=== PATIENT | male | born 2000 | race Caucasian/White ===

== ENCOUNTER 2025-01-19 07:09 | Emergency (ER) | payer BC, SELFPAY ==
[2025-01-19 07:14] VITALS: BP 117/78; PULSE 83; TEMP 36.9; O2SAT 100; BMI 25.8
--- NOTE | 2025-01-19 07:24 | ED_ITS ---
HPI HPI - General Adult General Chief complaint: Neck Pain/Injury Stated complaint: NECK PAIN, L ARM NUMBNESS Time Seen by Provider: 01/19/25 07:16 Source: patient Mode of arrival: walk-in Limitations: no limitations History of Present Illness HPI narrative: 24-year-old male presents for left sided neck pain. He was at the gym yesterday and he was sitting and he turned his head and had this pain. He points to the left posterior lateral aspect of his neck. He has had intermittent tingling in his left arm but no weakness. He did not fall and nothing struck him in his neck. No headache. He has no history of neck injuries. Related Data Previous Rx's ?Medication ?Instructions ?Recorded ibuprofen 800 mg tablet 800 mg PO Q8H PRN pain #20 t abs 01/19/25 methocarbamol 750 mg tablet 750 mg PO Q6H PRN pain #20 tabs 01/19/25 Allergies Allergy/AdvReac Type Severity Reaction Status Date / Time No Known Drug Allergies Allergy Verified 01/19/25 07:13 Opioid HPI Opioid Management Most Recent Opioid Data: Last Pain Scale 10 Today, 07:23 Review of Systems ROS Narrative A ten point review of systems is negative except as noted above. PFSH PFSH Social History Little interest or pleasure in doing things: not at all Feeling down, depressed, or hopeless: not at all Exam Narrative Exam Narrative: Nurses note and vital signs reviewed and patient is not hypoxic. General: The patient appears well and in no apparent distress. Patient is resting comfortably on cart. Skin: Warm, dry, no pallor noted. There is no rash noted. Head: Normocephalic, atraumatic. There is no mass or swelling or bruising or rash in his neck. Eye: Normal conjunctiva, no drainage Ears, Nose, Mouth, and Throat: oral mucosa is moist. Nares patent. Cardiovascular: Regular Rate and Rhythm Respiratory: Patient is in no distress, no accessory muscle use, lungs are clear to auscultation, no wheezing, rales or rhonchi Back: non-tender, including the C-spine GI: Soft and nontender Musculoskeletal: No swelling in his arms. Neurological: A&O, normal speech; upper and lower extremity strength intact and symmetric. Hand grasp symmetric. Radial pulses are 2+ bilaterally Psychiatric: Cooperative Constitutional Vital Signs, click to edit/add: Last Vital Signs Temp 98.4 F 01/19/25 07:14 Pulse 83 01/19/25 07:14 Resp 18 01/19/25 07:14 BP 117/78 01/19/25 07:14 Pulse Ox 100 01/19/25 07:14 O2 Del Method Room Air 01/19/25 07:14 Course Vital Signs Vital signs: Vital Signs Temperature 98.4 F 01/19/25 07:14 Pulse Rate 83 01/19/25 07:14 Respiratory Rate 18 01/19/25 07:14 Blood Pressure 117/78 01/19/25 07:14 Pulse Oximetry 100 01/19/25 07:14 Oxygen Delivery Method Room Air 01/19/25 07:14 Temperature 98.4 F 01/19/25 07:14 Pulse Rate 83 01/19/25 07:14 Respiratory Rate 18 01/19/25 07:14 Blood Pressure 117/78 01/19/25 07:14 Pulse Oximetry 100 01/19/25 07:14 Oxygen Delivery Method Room Air 01/19/25 07:14 Medical Decision Making MDM Narrative Medical decision making narrative: CT is negative. I have no clinical suspicion of vertebral artery injury. My clinical impression is that he has muscle strain and he will be treated as such. He was prescribed Robaxin and ibuprofen. Treatment diagnosis and follow-up were discussed with the patient. Differential Diagnosis Differential Diagnosis: Muscle strain, cervical vertebral injury Imaging Data CT C spine: Radiologist's impression: ITS Impressions Cervical Spine CT 01/19/25 07:37 IMPRESSION: STRAIGHTENING OF THE NORMAL CERVICAL CURVATURE. NO ACUTE BONY FINDINGS. IF SYMPTOMS PERSIST AND FURTHER EVALUATION IS WARRANTED, FOLLOW-UP MRI COULD BE CONSIDERED. Impression dictated by: Katarzyna Hyatt M.D. 01/19/2025 8:39 AM Dictation Location: [place] [address] Electronically authenticated by: [id number] Y Date: 01/19/2025 08:39 Discharge Plan Discharge Chief Complaint: Neck Pain/Injury Clinical Impression: Cervical muscle strain Patient Disposition: Home, Self-Care Time of Disposition Decision: 08:48 Condition: Good Mode of Transportation: Private Vehicle Prescriptions / Home Meds: New ibuprofen 800 mg tablet 800 mg PO Q8H PRN (Reason: pain) Qty: 20 0RF methocarbamol 750 mg tablet 750 mg PO Q6H PRN (Reason: pain) Qty: 20 0RF Print Language: Indonesian Instructions: Cervical Sprain (ED) Referrals: MELINA VELEZ DO [Primary Care Provider, Family Practice] - 1 week
--- NOTE | 2025-01-19 07:30 | PC.NURSE ---
pt back from ct
--- NOTE | 2025-01-19 07:31 | PC.NURSE ---
pt to ct via wheelchair with ct staff
--- OUTSIDE RECORDS SUMMARY | 2025-01-19 07:35 | XMS_ITS | Clinical Summary ---
Author Organization [facility] Address [address] [place] [address] Care Team Providers Care Model Builder Name Role Phone Vianca To MD Primary Care Provider [phone] Allergies Active Allergy Reactions Criticality Noted Date Comments Latex 03/06/2016 Medications loratadine (CLARITIN) 10 MG tablet Take 10 mg by mouth daily Active aspirin-acetami nophen-caffeine (EXCEDRIN MIGRAINE) 250-250-65 MG per tablet Take 1 tablet by mouth every 6 hours as needed for Headaches Active Social History Tobacco Use Types Packs/Day Years Used Date Smoking Tobacco: Never Alcohol Use Standard Drinks/Week Comments No 0 (1 standard drink = 0.6 oz pur e alcohol) Sex and Gender Information Value Date Recorded Sex Assigned at Not on file Legal Sex Male 9:35 PM EDT Gender Identity Not on file Sexual Orientation Not on file Last Filed Vital Signs Vital Sign Reading Time Taken Comments Blood Pressure 123/82 03/06/2016 9:52 PM EDT Pulse 78 03/06/2016 9:52 PM EDT Temperature 36.7 C (98 F) 03/06/2016 9:52 PM EDT Respiratory Rate 18 03/06/2016 9:52 PM EDT Oxygen Saturation 96% 03/06/2016 9:52 PM EDT Inhaled Oxygen Concentration - - Weight 106.6 kg (235 lb) 03/06/2016 9:52 PM EDT Height 180.3 cm (5' 11 ) 03/06/2016 9:52 PM EDT Body Mass Index 32.78 03/06/2016 9:52 PM EDT Plan of Treatment Not on file Care Teams Model Builder Relationship Specialty Start Date End Date Vianca To MD PCP - General 03/06/16
--- NOTE | 2025-01-19 07:37 | CT_ITS ---
The [address] [address] Patient Name: AMISHA FERNÁNDEZ MRN: [id number] date: 2000 Sex: M Assigned Patient Location: ER Current Patient Location: .MAIN Accession/Order Number: [id number] Exam Date: 01/19/2025 08:33 Report Date: 01/19/2025 08:39 At the request of: BRYANT DOWNS MD Procedure: CT cervical spine wo con CT CERVICAL SPINE WITHOUT CONTRAST WITH 3D RECONSTRUCTIONS: CLINICAL HISTORY: Pain and stiffness in neck. Intermittent tingling in left arm after twisting at gym yesterday COMPARISON: None TECHNIQUE: Spiral axial unenhanced images were obtained through the cervical spine. Sagittal, coronal and 3D volume-rendered reconstructions were also reviewed. This CT exam was performed using one or more following dose reduction techniques: Automated exposure control, adjustment of the mA and/or kV according to patient size, or use of iterative reconstruction technique. FINDINGS: There is straightening of the normal cervical curvature. Alignment is maintained in the sagittal plane. No acute fractures are identified. The disc spaces are uniform. There is minimal endplate spurring. No bony foraminal encroachment is seen. The atlantoaxial relationship is maintained. No prevertebral soft tissue swelling is identified. The upper imaged lungs show no contributory findings. CT/CT cervical spine wo con IMPRESSION: STRAIGHTENING OF THE NORMAL CERVICAL CURVATURE. NO ACUTE BONY FINDINGS. IF SYMPTOMS PERSIST AND FURTHER EVALUATION IS WARRANTED, FOLLOW-UP MRI COULD BE CONSIDERED. Impression dictated by: Katarzyna Hyatt M.D. 01/19/2025 8:39 AM Dictation Location: [place] [address] Electronically authenticated by: [id number] Y Date: 01/19/2025 08:39
== END 2025-01-19 09:00 | disposition home or self-care (01) ==
PROVIDERS: Emergency Provider Emergency Medicine; PCP Internal Medicine
DX: S16.1XXA Strain of muscle, fascia and tendon at neck level, initial encounter (principal); X58.XXXA Exposure to other specified factors, initial encounter
CPT/HCPCS: 72125; 99284